=== PATIENT | female | born 1955 | race Caucasian/White ===

== ENCOUNTER 2017-09-20 14:19 | Emergency (ER) | payer BC ==
[2017-09-20] MEDS ORDERED: Aspirin 81 MG Tab.Chew PO ONE (14:27)
[2017-09-20] MEDS ORDERED: Sodium Chloride 0.9% 10 ML Syringe FLUSH PRN (14:27)
[2017-09-20] MEDS ORDERED: Tenecteplase 50 MG Kit IV ONE (14:28)
[2017-09-20] MEDS ORDERED: Heparin Sodium 5,000 Units/ML Vial IVPUSH ONE (14:28)
[2017-09-20] MEDS ORDERED: Tenecteplase 50 MG Kit ONE (14:29)
[2017-09-20] MEDS ORDERED: Heparin Sodium/D5W 25,000 UNITS/500 ML BAG IV SCH (14:30)
--- NOTE | 2017-09-20 14:54 | EDM.PDOC ---
ED HPI GENERAL MEDICAL PROBLEM - General Chief Complaint: Chest Pain Stated Complaint: HEART ISSUE Time Seen by Provider: 09/20/17 14:27 Source of Information: Reports: Patient History Limitations: Reports: No Limitations - History of Present Illness INITIAL COMMENTS - FREE TEXT/NARRATIVE: The patient presents with left sided chest pain. This started this morning at work. She is short of breath. She says it radiates to her back. She has never had chest pain like this before. It is a 3/10 now. She has some nausea. She did not vomit. She is no diaphoretic. She has no history of heart disease but she does have HTN. She has no hypercholesterolemia. She has no diabetes. She does not smoke. Onset: Sudden Duration: Hour(s): Location: Reports: Chest Quality: Reports: Pressure Severity: Moderate Improves with: Reports: None Worsens with: Reports: None Associated Symptoms: Reports: Chest Pain, Nausea/Vomiting, Shortness of Breath. 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: - Past Surgical History GI Surgical History: Reports: Appendectomy Social & Family History - Family History Oncologic: Reports: Breast, Liver - Tobacco Use Smoking Status *Q: Current Every Day Smoker Years of Tobacco use: 50 Packs/Tins Daily: 1 - Caffeine Use Caffeine Use: Reports: Coffee - Alcohol Use Days Per Week of Alcohol Use: 7 Number of Drinks Per Day: 5 Total Drinks Per Week: 35 - Recreational Drug Use Recreational Drug Use: No ED ROS GENERAL - Review of Systems Review Of Systems: See Below Constitutional: Reports: No Symptoms HEENT: Reports: No Symptoms Respiratory: Reports: Shortness of Breath Cardiovascular: Reports: Chest Pain Endocrine: Reports: No Symptoms GI/Abdominal: Reports: Nausea. Denies: Abdominal Pain, Vomiting : Reports: No Symptoms Musculoskeletal: Reports: No Symptoms ED EXAM, GENERAL - Physical Exam Exam: See Below Exam Limited By: No Limitations General Appearance: Alert, No Apparent Distress Ears: Normal External Exam Nose: Normal Inspection Head: Atraumatic, Normocephalic Neck: Normal Inspection Respiratory/Chest: No Respiratory Distress, Lungs Clear, Normal Breath Sounds Cardiovascular: Regular Rate, Rhythm, No Edema, No Murmur GI/Abdominal: Soft, Non-Tender, No Organomegaly, No Mass Extremities: Normal Inspection Neurological: Alert, Oriented, No Motor/Sensory Deficits EKG INTERPRETATION EKG Date: 09/20/17 Time: 14:22 Rhythm: NSR Rate (Beats/Min): 81 [place]: Normal P-Wave: Present QRS: Normal ST-T: Elevated (Inferior leads with reciprocal changes to the anterior leads) Course - Vital Signs Last Recorded V/S: Last Vital Signs Temp 97.1 F 09/20/17 14:24 Pulse 97 09/20/17 14:24 Resp 15 09/20/17 14:24 BP 148/98 H 09/20/17 14:24 Pulse Ox 99 09/20/17 14:24 - Orders/Labs/Meds Orders: Active Orders 24 hr Category Date Time Status Cardiac Monitoring [RC] . DIRECTED Care 09/20/17 14:27 Active EKG Documentation Completion [RC] STAT Care 09/20/17 14:27 Active Oxygen Therapy [RC] PRN Care 09/20/17 14:27 Active Peripheral IV Care [RC] . DIRECTED Care 09/20/17 14:27 Active Chest 1V Frontal [CR] Stat Exams 09/20/17 14:28 Taken CBC W/O DIFF,HEMOGRAM [HEME] MOTH@0700 Lab 09/23/17 07:00 Ordered CBC W/O DIFF,HEMOGRAM [HEME] MOTH@0700 Lab 09/27/17 07:00 Ordered CBC W/O DIFF,HEMOGRAM [HEME] MOTH@0700 Lab 09/30/17 07:00 Ordered CBC W/O DIFF,HEMOGRAM [HEME] MOTH@0700 Lab 10/04/17 07:00 Ordered CBC W/O DIFF,HEMOGRAM [HEME] MOTH@0700 Lab 10/07/17 07:00 Ordered CBC W/O DIFF,HEMOGRAM [HEME] MOTH@0700 Lab 10/11/17 07:00 Ordered COMPREHENSIVE METABOLIC PN,CMP [CHEM] Stat Lab 09/20/17 14:25 Received TROPONIN I [CHEM] Stat Lab 09/20/17 14:25 Received Heparin Sodium/D5W [Heparin 25,000 Units in D5W 500 ML] Med 09/20/17 14:30 Active 25,000 units in 500 ml IV TITRATE Sodium Chloride 0.9% [Saline Flush] Med 09/20/17 14:27 Active 10 ml FLUSH ASDIRECTED PRN Peripheral IV Insertion Adult [OM.PC] Stat Oth 09/20/17 14:27 Ordered Medication Orders Heparin Sodium/Dextrose (Heparin 25,000 Units In D5w 500 Ml) 25,000 units in 500 mls @ 17.69 mls/hr IV TITRATE WOLF; 15 UNITS/KG/HR PRN Reason: Protocol Last Admin: 09/20/17 14:42 Dose: 17.69 mls/hr Sodium Chloride (Saline Flush) 10 ml FLUSH ASDIRECTED PRN PRN Reason: Keep Vein Open Labs: Laboratory Tests 09/20/17 Range/Units 14:25 WBC 12.01 H (3.98-10.04) K/mm3 RBC 4.64 (3.98-5.22) M/mm3 Hgb 15.2 (11.2-15.7) gm/L Hct 45.2 H (34.1-44.9) % MCV 97.4 H (79.4-94.8) fl MCH 32.8 H (25.6-32.2) pg MCHC 33.6 (32.2-35.5) g/dl RDW Std Deviation 43.5 (36.4-46.3) fL Plt Count 308 (182-369) K/mm3 MPV 9.6 (9.4-12.3) fl Neut % (Auto) 59.9 (34.0-71.1) % Lymph % (Auto) 31.6 (19.3-51.7) % [place] % (Auto) 7.3 (4.7-12.5) % Eos % (Auto) 0.6 L (0.7-5.8) Baso % (Auto) 0.2 (0.1-1.2) % Neut # (Auto) 7.19 H (1.56-6.13) K/mm3 Lymph # (Auto) 3.80 H (1.18-3.74) K/mm3 [place] # (Auto) 0.88 H (0.24-0.36) K/mm3 Eos # (Auto) 0.07 (0.04-0.36) K/mm3 Baso # (Auto) 0.02 (0.01-0.08) K/mm3 Meds: Medications Generic Name Dose Route Start Last Admin Trade Name Freq PRN Reason Stop Dose Admin Heparin Sodium/Dextrose 25,000 units in 500 mls @ 17.69 mls/hr 09/20/17 14:30 09/20/17 14:42 Heparin 25,000 Units In D5w 500 Ml IV 17.69 mls/hr TITRATE WOLF Administration Protocol 15 UNITS/KG/HR Sodium Chloride 10 ml 09/20/17 14:27 Saline Flush FLUSH ASDIRECTED PRN Keep Vein Open Discontinued Medications Generic Name Dose Route Start Last Admin Trade Name Freq PRN Reason Stop Dose Admin Aspirin 324 mg 09/20/17 14:27 09/20/17 14:38 Aspirin PO 09/20/17 14:28 324 mg ONETIME ONE Administration Heparin Sodium (Porcine) 3,480 units 09/20/17 14:28 09/20/17 14:42 Heparin Sodium IVPUSH 09/20/17 14:29 3,480 units ONETIME ONE Administration Tenecteplase Confirm 09/20/17 14:29 Tnkase Administered 09/20/17 14:30 Dose 50 mg .ROUTE .STK-MED ONE Tenecteplase 30 mg 09/20/17 14:28 09/20/17 14:46 Tnkase IV 09/20/17 14:29 35 mg ONETIME ONE Administration Protocol - Re-Assessments/Exams Free Text/Narrative Re-Assessment/Exam: 09/20/17 14:53 The patient came in to the ER with chest pain. My nurses did an EKG and there was ST elevation in the inferior leads. I ordered O2 PRN, IV saline lock, aspirin, TnKase 30mg IV, CXR, labs, heparin bolus of 3,480units and a drip at 1, 000units. 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 Departure - Departure Time of Disposition: 15:00 Disposition: DC/Tfer to Acute Hospital 02 Reason for Transfer *Q: Primary PCI Indicated Condition: Serious Clinical Impression: STEMI (ST elevation myocardial infarction) Qualifiers: Involved coronary artery: right coronary artery Qualified Code(s): I21.11 - ST elevation (STEMI) myocardial infarction involving right coronary artery Referrals: PCP,Unknown [Primary Care Provider] - - My Orders Last 24 Hours: My Active Orders 09/20/17 14:25 COMPREHENSIVE METABOLIC PN,CMP [CHEM] Stat TROPONIN I [CHEM] Stat 09/20/17 14:27 Cardiac Monitoring [RC] . DIRECTED EKG Documentation Completion [RC] STAT Oxygen Therapy [RC] PRN Peripheral IV Care [RC] . DIRECTED Sodium Chloride 0.9% [Saline Flush] 10 ml FLUSH ASDIRECTED PRN Peripheral IV Insertion Adult [OM.PC] Stat 09/20/17 14:28 Chest 1V Frontal [CR] Stat 09/20/17 14:30 Heparin Sodium/D5W [Heparin 25,000 Units in D5W 500 ML] 25,000 units in 500 ml IV TITRATE 09/23/17 07:00 CBC W/O DIFF,HEMOGRAM [HEME] MOTH@0700 09/27/17 07:00 CBC W/O DIFF,HEMOGRAM [HEME] MOTH@0700 09/30/17 07:00 CBC W/O DIFF,HEMOGRAM [HEME] MOTH@0700 10/04/17 07:00 CBC W/O DIFF,HEMOGRAM [HEME] MOTH@0700 10/07/17 07:00 CBC W/O DIFF,HEMOGRAM [HEME] MOTH@0700 10/11/17 07:00 CBC W/O DIFF,HEMOGRAM [HEME] MOTH@0700 - Assessment/Plan Last 24 Hours: My Active Orders 09/20/17 14:25 COMPREHENSIVE METABOLIC PN,CMP [CHEM] Stat TROPONIN I [CHEM] Stat 09/20/17 14:27 Cardiac Monitoring [RC] . DIRECTED EKG Documentation Completion [RC] STAT Oxygen Therapy [RC] PRN Peripheral IV Care [RC] . DIRECTED Sodium Chloride 0.9% [Saline Flush] 10 ml FLUSH ASDIRECTED PRN Peripheral IV Insertion Adult [OM.PC] Stat 09/20/17 14:28 Chest 1V Frontal [CR] Stat 09/20/17 14:30 Heparin Sodium/D5W [Heparin 25,000 Units in D5W 500 ML] 25,000 units in 500 ml IV TITRATE 09/23/17 07:00 CBC W/O DIFF,HEMOGRAM [HEME] MOTH@69909/27/17 07:00 CBC W/O DIFF,HEMOGRAM [HEME] MOTH@69909/30/17 07:00 CBC W/O DIFF,HEMOGRAM [HEME] MOTH@69910/04/17 07:00 CBC W/O DIFF,HEMOGRAM [HEME] MOTH@69910/07/17 07:00 CBC W/O DIFF,HEMOGRAM [HEME] MOTH@00 10/11/17 07:00 CBC W/O DIFF,HEMOGRAM [HEME] MOTH@07
--- NOTE | 2017-09-20 14:56 | CR ---
Chest: Frontal view of the chest was obtained utilizing portable technique. Comparison: Prior chest x-ray of 08/16/12 is available. Heart size and mediastinum are within normal limits for portable technique. Lungs are clear. Minimal scoliosis is noted within the spine. Impression: 1. Nothing acute is seen on portable chest x-ray. Diagnostic code #2
[2017-09-20 18:22] VITALS: BP 133/86
== END 2017-09-20 15:26 ==
LOC: JD.ED 14:19
DX: I21.11 ST elevation (STEMI) myocardial infarction involving right coronary artery (principal); I10 Essential (primary) hypertension; F17.210 Nicotine dependence, cigarettes, uncomplicated; Z79.899 Other long term (current) drug therapy
CPT/HCPCS: 36415; 71045; 80053; 84484; 85025; 93005; 96365; 96375; 99285; A9270; J1644; J3101; 93010

== ENCOUNTER 2017-11-14 12:11 | Emergency (ER) | payer BC ==
[2017-11-14 12:23] VITALS: BP 151/78
[2017-11-14] MEDS ORDERED: Famotidine 20 MG/2 ML SDV IVPUSH ONE (12:40)
[2017-11-14] MEDS ORDERED: Sodium Chloride 0.9% 10 ML Syringe FLUSH PRN (12:40)
--- NOTE | 2017-11-14 14:56 | EDM.PDOC ---
ED HPI GENERAL MEDICAL PROBLEM - General Chief Complaint: Chest Pain Stated Complaint: CHEST PAIN Time Seen by Provider: 11/14/17 12:29 Source of Information: Reports: Patient, RN Notes Reviewed - History of Present Illness INITIAL COMMENTS - FREE TEXT/NARRATIVE: 62 year old female with intermitent chest discomfort ever since having R coronary stent placed about 2 months ago. Mild ache and burning discomfort upper mid abd and lower ant chest, does not radiate to back, L shoulder or arm. No cough, fever or chills. No nausea, vomiting or diaphoresis. Was feeling more achy earlier today, better now. She had a stent placed about 2 months ago, "complete blockage" of R coronary. She knows she is anxious, felt she had better have it checked out. 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) Other Treatments LETTUCE TRIMMER: took rountine baby aspirin at 1030 Right Chest Pain Score (Numeric/FACES): 2 - Related Data Allergies Allergy/AdvReac Type Severity Reaction Status Date / Time No Known Allergies Allergy Verified 09/20/17 14:27 Home Meds: Home Meds Lisinopril [Zestril] 10 mg PO DAILY 12/26/15 [History] Aspirin [Halfprin] 81 mg PO DAILY 11/14/17 [History] Clopidogrel [Plavix] 75 mg PO DAILY 11/14/17 [History] Metoprolol Succinate 12.5 mg PO DAILY 11/14/17 [History] atorvaSTATin [Lipitor] 10 mg PO DAILY 11/14/17 [History] Past Medical History HEENT History: Reports: Impaired Vision Cardiovascular History: Reports: Hypertension, [place], 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: Psychiatric History: Reports: Anxiety, Depression - Past Surgical History GI Surgical History: Reports: Appendectomy Musculoskeletal Surgical History: Reports: Other (See Below) Other Musculoskeletal Surgeries/Procedures:: back surgery-spinal stenosis Social & Family History - Family History Oncologic: Reports: Breast, Liver - Tobacco Use Smoking Status *Q: Current Every Day Smoker Years of Tobacco use: 47 Packs/Tins Daily: 1 - Caffeine Use Caffeine Use: Reports: Coffee, Tea - Alcohol Use Days Per Week of Alcohol Use: 7 Number of Drinks Per Day: 5 Total Drinks Per Week: 35 - Recreational Drug Use Recreational Drug Use: No ED ROS GENERAL - Review of Systems Review Of Systems: See Below Constitutional: Denies: Fever, Chills, Diaphoresis HEENT: Reports: No Symptoms Respiratory: Denies: Shortness of Breath, Wheezing, Pleuritic Chest Pain Cardiovascular: Reports: Chest Pain (lower ant chest without radiation) GI/Abdominal: Reports: Abdominal Pain (upper mid abd, mild) Musculoskeletal: Denies: Neck Pain, Shoulder Pain, Arm Pain, Back Pain Skin: Reports: No Symptoms Neurological: Reports: No Symptoms ED EXAM, GENERAL - Physical Exam Exam: See Below General Appearance: Alert, Anxious (mild) Throat/Mouth: Normal Inspection Head: No: Facial Swelling Neck: Supple, Full Range of Motion Respiratory/Chest: No Respiratory Distress, Lungs Clear, Normal Breath Sounds Cardiovascular: Regular Rate, Rhythm GI/Abdominal: Soft, Non-Tender. No: Guarding Back Exam: No: CVA Tenderness (L), CVA Tenderness (R) Extremities: Normal Inspection. No: Normal Range of Motion, Pedal Edema, Leg Pain, Increased Warmth, Redness Neurological: Alert, Oriented, No Motor/Sensory Deficits EKG INTERPRETATION EKG Date: 11/14/17 [place]: Normal P-Wave: Present QRS: Normal ST-T: Depressed (slight St depression AVF, V3-6) Course - Vital Signs Last Recorded V/S: Last Vital Signs Temp 98.5 F 11/14/17 12:21 Pulse 77 11/14/17 12:21 Resp 16 11/14/17 12:21 BP 151/78 H 11/14/17 12:21 Pulse Ox 100 11/14/17 12:21 - Orders/Labs/Meds Orders: Active Orders 24 hr Category Date Time Status EKG Documentation Completion [RC] ASDIRECTED Care 11/14/17 12:27 Active Peripheral IV Care [RC] . DIRECTED Care 11/14/17 12:40 Active Chest 1V Frontal [CR] Stat Exams 11/14/17 12:39 Taken Peripheral IV Insertion Adult [OM.PC] Stat Oth 11/14/17 12:39 Ordered EKG 12 Lead [EK] Stat Ther 11/14/17 12:27 Ordered Labs: Laboratory Tests 11/14/17 11/14/17 11/14/17 Range/Units 12:30 12:30 12:30 WBC 11.18 H (3.98-10.04) K/mm3 RBC 4.29 (3.98-5.22) M/mm3 Hgb 14.2 (11.2-15.7) gm/L Hct 41.9 (34.1-44.9) % MCV 97.7 H (79.4-94.8) fl MCH 33.1 H (25.6-32.2) pg MCHC 33.9 (32.2-35.5) g/dl RDW Std Deviation 42.8 (36.4-46.3) fL Plt Count 271 (182-369) K/mm3 MPV 9.5 (9.4-12.3) fl Neut % (Auto) 64.1 (34.0-71.1) % Lymph % (Auto) 25.3 (19.3-51.7) % [place] % (Auto) 9.1 (4.7-12.5) % Eos % (Auto) 0.8 (0.7-5.8) Baso % (Auto) 0.3 (0.1-1.2) % Neut # (Auto) 7.17 H (1.56-6.13) K/mm3 Lymph # (Auto) 2.83 (1.18-3.74) K/mm3 [place] # (Auto) 1.02 H (0.24-0.36) K/mm3 Eos # (Auto) 0.09 (0.04-0.36) K/mm3 Baso # (Auto) 0.03 (0.01-0.08) K/mm3 Sodium 137 (136-145) mEq/L Potassium 4.0 (3.5-5.1) mEq/L Chloride 101 (98-107) mEq/L Carbon Dioxide 26 (21-32) mEq/L Anion Gap 14.0 (5-15) BUN 8 (7-18) mg/dL Creatinine 0.6 (0.55-1.02) mg/dL Est Cr Clr Drug Dosing 85.24 mL/min Estimated GFR (MDRD) > 60 (>60) mL/min BUN/Creatinine Ratio 13.3 L (14-18) Glucose 108 (80-115) mg/dL Calcium 9.3 (8.5-10.1) mg/dL Total Bilirubin 0.9 (0.2-1.0) mg/dL AST 20 (15-37) U/L ALT 25 (14-59) U/L Alkaline Phosphatase 97 (46-116) U/L Troponin I < 0.017 (0.00-0.056) ng/mL Total Protein 7.1 (6.4-8.2) g/dl Albumin 3.7 (3.4-5.0) g/dl Globulin 3.4 gm/dL Albumin/Globulin Ratio 1.1 (1-2) Meds: Medications Discontinued Medications Generic Name Dose Route Start Last Admin Trade Name Freq PRN Reason Stop Dose Admin Famotidine 20 mg 11/14/17 12:40 11/14/17 12:47 Pepcid IVPUSH 11/14/17 12:41 20 mg ONETIME ONE Administration Sodium Chloride 10 ml 11/14/17 12:40 11/14/17 12:47 Saline Flush FLUSH 10 ml ASDIRECTED PRN Administration Keep Vein Open - Re-Assessments/Exams Free Text/Narrative Re-Assessment/Exam: 11/14/17 21:11 trop did come back normal, CXR, other labs look good, NSR while here in the ED, no ectopy or other rythm abnormality, 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 Departure - Departure Time of Disposition: 14:56 Disposition: Home, Self-Care 01 Condition: Fair Clinical Impression: Atypical chest pain Instructions: Nonspecific Chest Pain, [id number] Referrals: Gokul Pool MD [Primary Care Provider] - Forms: ED Department Discharge Additional Instructions: continue current medications, See Die Casting Machine Maintainer in about 10 days as planned, Return to ED if symptoms worsening in any way. - My Orders Last 24 Hours: My Active Orders 11/14/17 12:27 EKG Documentation Completion [RC] ASDIRECTED EKG 12 Lead [EK] Stat 11/14/17 12:39 Chest 1V Frontal [CR] Stat Peripheral IV Insertion Adult [OM.PC] Stat 11/14/17 12:40 Peripheral IV Care [RC] . DIRECTED - Assessment/Plan Last 24 Hours: My Active Orders 11/14/17 12:27 EKG Documentation Completion [RC] ASDIRECTED EKG 12 Lead [EK] Stat 11/14/17 12:39 Chest 1V Frontal [CR] Stat Peripheral IV Insertion Adult [OM.PC] Stat 11/14/17 12:40 Peripheral IV Care [RC] . DIRECTED
--- NOTE | 2017-11-15 07:59 | CR ---
Chest: Frontal view of the chest was obtained. Comparison: Prior chest x-ray of 09/20/17. Heart size is normal. Mild tortuosity of the thoracic aorta is seen. Lungs are clear. No acute parenchymal change is seen. Bony structures are unremarkable. Impression: 1. Nothing acute is appreciated on frontal chest x-ray. No significant change is seen from previous study. Diagnostic code #1
== END 2017-11-14 15:16 | disposition home or self-care (01) ==
LOC: JD.ED 12:11
DX: R07.89 Other chest pain (principal); I10 Essential (primary) hypertension; F32.9 Major depressive disorder, single episode, unspecified; F17.210 Nicotine dependence, cigarettes, uncomplicated; Z79.82 Long term (current) use of aspirin; Z79.899 Other long term (current) drug therapy
CPT/HCPCS: 36415; 71045; 80053; 84484; 85025; 93005; 96374; 99285; J7050; 93010; 99283-25

== ENCOUNTER 2019-12-27 23:49 | Emergency (ER) | payer BC, MEDICARE ==
[2019-12-28 00:28] VITALS: BP 160/76; PULSE 93
--- NOTE | 2019-12-28 00:59 | EDM.PDOC ---
ED HPI GENERAL MEDICAL PROBLEM - General Chief Complaint: Chest Pain Stated Complaint: CHEST PAIN Time Seen by Provider: 12/28/19 00:40 Source of Information: Reports: Patient History Limitations: Reports: No Limitations - History of Present Illness INITIAL COMMENTS - FREE TEXT/NARRATIVE: Ms. Horner is a very pleasant 64-year-old woman with a past medical history significant for coronary artery disease, status post an AR in September 2017, status post a single stent to the RCA, as well as anxiety and depression, who now presents to the ED stating that she developed sudden-onset lower central chest pain - she points with one finger to her lower sternum - around 22:00 tonight, while in bed. It does not radiate. She states that the pain woke her from sleep. She describes the sensation as a burning indigestion. She states that initially it was more of a discomfort, but it has become a pain. The pain comes and goes, lasting 10 to 15 seconds, then recurring a few seconds later. She has associated nausea and feels clammy, but denies associated dyspnea or sense of impending doom. She states that her symptoms are the same as when she suffered an AR in September 2017. The patient states that she chewed 3 baby aspirin around 22:30 to 23:00. The patient also notes that she had the sensation of heaviness felt across the back of her shoulders and neck and down both arms Wednesday morning, 12/26/2019, while at work. Otherwise, the patient denies recent fever, chills, sore throat , ear pain, nasal or sinus congestion, cough, dyspnea, chest pain, palpitations , nausea, vomiting, constipation, diarrhea, abdominal pain, urinary symptoms, recent weight gain or weight loss, recent bloody bowel movements or black bowel movements, recent joint aches, headaches, or rashes. Here in the ED, the patient's initial BP is found to be elevated at 160/76, otherwise, she is hemodynamically stable, afebrile, saturating 97% on room air. The patient states that she did not undergo a cardiac stress test following her AR in 2017. The patient's PCP is Dr. Gokul Pool. Her General Assistant is Dr. Kelly Capone. Chest Pain Score (Numeric/FACES): 2 - Related Data Allergies Allergy/AdvReac Type Severity Reaction Status Date / Time No Known Allergies Allergy Verified 09/20/17 14:27 Home Meds: Home Meds lisinopriL [Zestril] 10 mg PO DAILY 12/26/15 [History] Aspirin [Halfprin] 81 mg PO DAILY 11/14/17 [History] Clopidogrel [Plavix] 75 mg PO DAILY 11/14/17 [History] Metoprolol Succinate 12.5 mg PO DAILY 11/14/17 [History] atorvaSTATin [Lipitor] 10 mg PO DAILY 11/14/17 [History] Past Medical History HEENT History: Reports: Impaired Vision Cardiovascular History: Reports: CAD, Hypertension, AR (Sep 2017) Musculoskeletal History: Reports: Other (See Below) (Spinal stenosis s/p lumbar laminectomy) Psychiatric History: Reports: Anxiety, Depression - Past Surgical History Cardiovascular Surgical History: Reports: Coronary Artery Stent (x 1, RCA, Sep 2017) GI Surgical History: Reports: Appendectomy Neurological Surgical History: Reports: Lumbar Spine (laminectomy) Social & Family History - Family History Oncologic: Reports: Breast, Liver - Tobacco Use Smoking Status *Q: Current Every Day Smoker Years of Tobacco use: 51 Packs/Tins Daily: 1 - Caffeine Use Caffeine Use: Reports: Coffee, Tea - Alcohol Use Alcohol Use History: Yes Alcohol Use Frequency: Socially - Recreational Drug Use Recreational Drug Use: No - Living Situation & Occupation Living situation: Reports: , with Family (2 grandchildren) 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 ED EXAM, GENERAL - Physical Exam Exam: See Below Exam Limited By: No Limitations General Appearance: Alert, WD/WN, No Apparent Distress Eye Exam: Bilateral Eye: EOMI, Normal Inspection Ears: Normal External Exam, Hearing Grossly Normal Nose: Normal Inspection Throat/Mouth: Normal Inspection, Normal Lips, Normal Voice, No Airway Compromise Head: Atraumatic, Normocephalic Neck: Normal Inspection, Full Range of Motion Respiratory/Chest: No Respiratory Distress, Lungs Clear, Normal Breath Sounds, No Accessory Muscle Use, Chest Non-Tender (including the lower sternum) Cardiovascular: Normal Peripheral Pulses, Regular Rate, Rhythm, No Edema, No Gallop, No JVD, No Murmur, No Rub Peripheral Pulses: 4+: Radial (L), Radial (R) GI/Abdominal: Normal Bowel Sounds, Soft, Non-Tender (including the epigastrium) , No Organomegaly, No Distention, No Abnormal Bruit, No Mass (Female) Exam: Deferred Rectal (Female) Exam: Deferred Back Exam: Normal Inspection, Full Range of Motion, NT Extremities: Normal Inspection, Normal Range of Motion, No Pedal Edema, Normal Capillary Refill Neurological: Alert, Oriented, Normal Cognition, No Motor/Sensory Deficits Psychiatric: Normal Affect Skin Exam: Warm, Dry, Intact, Normal Color, No Rash EKG INTERPRETATION EKG Date: 12/28/19 Time: 00:03 Rhythm: NSR Rate (Beats/Min): 88 [place]: Normal P-Wave: Present QRS: Normal (Early transition) ST-T: Depressed (ST depression in the inferolateral leads, but no T wave inversions.) QT: Normal Comparison: No Change (11/14/2017) Course - Vital Signs Last Recorded V/S: Last Vital Signs Temp 37.0 C 12/28/19 00:03 Pulse 93 12/28/19 00:03 Resp 16 12/28/19 00:03 BP 160/76 H 12/28/19 00:03 Pulse Ox 97 12/28/19 00:03 - Orders/Labs/Meds Orders: Active Orders 24 hr Category Date Time Status EKG Documentation Completion [RC] ASDIRECTED Care 12/28/19 00:08 Active Chest 2V [CR] Stat Exams 12/28/19 01:12 Taken EKG 12 Lead [EK] Stat Ther 12/28/19 00:08 Ordered Labs: Laboratory Tests 12/28/19 12/28/19 12/28/19 Range/Units 00:18 00:18 00:18 WBC 9.09 (3.98-10.04) K/mm3 RBC 4.23 (3.98-5.22) M/mm3 Hgb 13.9 (11.2-15.7) gm/dl Hct 41.4 (34.1-44.9) % MCV 97.9 H (79.4-94.8) fl MCH 32.9 H (25.6-32.2) pg MCHC 33.6 (32.2-35.5) g/dl RDW Std Deviation 45.4 (36.4-46.3) fL Plt Count 304 (182-369) K/mm3 MPV 9.3 L (9.4-12.3) fl Neut % (Auto) 44.9 (34.0-71.1) % Lymph % (Auto) 40.5 (19.3-51.7) % [place] % (Auto) 8.1 (4.7-12.5) % Eos % (Auto) 5.6 (0.7-5.8) Baso % (Auto) 0.6 (0.1-1.2) % Neut # (Auto) 4.08 (1.56-6.13) K/mm3 Lymph # (Auto) 3.68 (1.18-3.74) K/mm3 [place] # (Auto) 0.74 H (0.24-0.36) K/mm3 Eos # (Auto) 0.51 H (0.04-0.36) K/mm3 Baso # (Auto) 0.05 (0.01-0.08) K/mm3 PT (9.7-12.0) SECONDS INR APTT (22-31) SECONDS D-Dimer, Quantitative (0.19-0.50) mg/L Sodium 137 (136-145) mEq/L Potassium 3.7 (3.5-5.1) mEq/L Chloride 102 (98-107) mEq/L Carbon Dioxide 25 (21-32) mEq/L Anion Gap 13.7 (5-15) BUN 12 (7-18) mg/dL Creatinine 0.5 L (0.55-1.02) mg/dL Est Cr Clr Drug Dosing 95.57 mL/min Estimated GFR (MDRD) > 60 (>60) mL/min BUN/Creatinine Ratio 24.0 H (14-18) Glucose 148 H (80-115) mg/dL Calcium 9.3 (8.5-10.1) mg/dL Magnesium (1.8-2.4) mg/dl Total Bilirubin 0.3 (0.2-1.0) mg/dL AST 18 (15-37) U/L ALT 28 (14-59) U/L Alkaline Phosphatase 108 (46-116) U/L Troponin I < 0.017 (0.00-0.056) ng/mL NT-Pro-B Natriuret Pep 57 (0-125) pg/mL Total Protein 6.9 (6.4-8.2) g/dl Albumin 3.6 (3.4-5.0) g/dl Globulin 3.3 gm/dL Albumin/Globulin Ratio 1.1 (1-2) 12/28/19 12/28/19 12/28/19 Range/Units 00:18 00:28 01:55 WBC (3.98-10.04) K/mm3 RBC (3.98-5.22) M/mm3 Hgb (11.2-15.7) gm/dl Hct (34.1-44.9) % MCV (79.4-94.8) fl MCH (25.6-32.2) pg MCHC (32.2-35.5) g/dl RDW Std Deviation (36.4-46.3) fL Plt Count (182-369) K/mm3 MPV (9.4-12.3) fl Neut % (Auto) (34.0-71.1) % Lymph % (Auto) (19.3-51.7) % [place] % (Auto) (4.7-12.5) % Eos % (Auto) (0.7-5.8) Baso % (Auto) (0.1-1.2) % Neut # (Auto) (1.56-6.13) K/mm3 Lymph # (Auto) (1.18-3.74) K/mm3 [place] # (Auto) (0.24-0.36) K/mm3 Eos # (Auto) (0.04-0.36) K/mm3 Baso # (Auto) (0.01-0.08) K/mm3 PT 9.7 (9.7-12.0) SECONDS INR 0.93 APTT 25 (22-31) SECONDS D-Dimer, Quantitative 0.28 (0.19-0.50) mg/L Sodium (136-145) mEq/L Potassium (3.5-5.1) mEq/L Chloride (98-107) mEq/L Carbon Dioxide (21-32) mEq/L Anion Gap (5-15) BUN (7-18) mg/dL Creatinine (0.55-1.02) mg/dL Est Cr Clr Drug Dosing mL/min Estimated GFR (MDRD) (>60) mL/min BUN/Creatinine Ratio (14-18) Glucose (80-115) mg/dL Calcium (8.5-10.1) mg/dL Magnesium 2.0 (1.8-2.4) mg/dl Total Bilirubin (0.2-1.0) mg/dL AST (15-37) U/L ALT (14-59) U/L Alkaline Phosphatase (46-116) U/L Troponin I < 0.017 (0.00-0.056) ng/mL NT-Pro-B Natriuret Pep (0-125) pg/mL Total Protein (6.4-8.2) g/dl Albumin (3.4-5.0) g/dl Globulin gm/dL Albumin/Globulin Ratio (1-2) Meds: Medications Discontinued Medications Generic Name Dose Route Start Last Admin Trade Name Freq PRN Reason Stop Dose Admin Al Hydroxide/Mg Hydroxide 30 0 ml 12/28/19 02:34 12/28/19 02:44 ml/ Lidocaine HCl 15 ml PO 12/28/19 02:35 45 ml ONETIME STA Administration Famotidine 40 mg 12/28/19 02:34 12/28/19 02:44 Pepcid PO 12/28/19 02:35 40 mg ONETIME STA Administration - Re-Assessments/Exams Free Text/Narrative Re-Assessment/Exam: 12/28/19 01:00 The patient's CBC is unremarkable. Her CMP is remarkable for a blood glucose elevated at 148, with the remainder of her CMP being unremarkable. Her magnesium level is within normal limits at 2.0. Her troponin is undetectably low. Her BNP is within normal limits at 57. Her D-dimer is within normal limits at 0.28. Her coags are within normal limits. The patient has not yet gone for her chest x-ray. The patient's ECG demonstrates ST depressions in the inferolateral leads, but without T-wave inversions, and these same changes were seen on her previous ECG of 11/14/2017. Nevertheless, the patient states that her current symptoms are the same as when she suffered an AR in September 2017, therefore I will repeat a troponin 4 hours after the onset of her symptoms, at 02:00. 12/28/19 01:35 Two-view chest radiograph appears to be grossly normal. The cardiac silhouette is within normal limits. No pulmonary vascular congestion. No pleural effusions. No focal infiltrate. No pneumothorax. Formal read per the Radiologist pending. 12/28/19 02:32 The patient's repeat troponin is still undetectably low. 12/28/19 02:38 Test results discussed with the patient. The patient states that her symptoms have significantly improved, although not completely resolved. I have ordered a GI cocktail and oral famotidine, and I will have the patient continue to take [id number] famotidine on a regular basis. I would like her to follow-up with her General Assistant to arrange for an outpatient cardiac stress test. 12/28/19 02:53 The patient states that she had some improvement - not complete relief - following the GI cocktail. This supports the diagnosis of GERD. Departure - Departure Time of Disposition: 02:39 Disposition: Home, Self-Care 01 Condition: Good Clinical Impression: GERD (gastroesophageal reflux disease) Referrals: Gokul Pool MD [Primary Care Provider] - Kelly Capone MD [Physician] - Forms: ED Department Discharge Additional Instructions: You were seen in the emergency room after being awoken with lower chest burning pain. Work-up in the ER included blood work, a chest x-ray, and an ECG. Your entire work-up was unremarkable. You have not suffered a heart attack. You do not have a blood clot in your lungs. You do not have pneumonia. You do not have a collapsed lung. Based on your history and physical exam, the cause of your pain is most likely due to GERD (acid reflux). You have been started on the antacid famotidine (Pepcid). Famotidine is available [id number], and generic is just as good as the brand name. We recommend that you take 1 tablet of famotidine either once or twice a day. We recommend that you follow-up with your General Assistant, Dr. Kelly Capone, to arrange for an outpatient cardiac stress test. As discussed, we also recommend that you consider quitting smoking. If any other problems, please do not hesitate to return to the ER. Sepsis Event Note - Evaluation Sepsis Screening Result: No Definite Risk - Focused Exam Vital Signs: Vital Signs Temp Pulse Resp BP Pulse Ox 12/28/19 00:03 37.0 C 93 16 160/76 H 97 Date Exam was Performed: 12/28/19 Time Exam was Performed: 02:53 - My Orders Last 24 Hours: My Active Orders 12/28/19 00:08 EKG Documentation Completion [RC] ASDIRECTED EKG 12 Lead [EK] Stat 12/28/19 01:12 Chest 2V [CR] Stat - Assessment/Plan Last 24 Hours: My Active Orders 12/28/19 00:08 EKG Documentation Completion [RC] ASDIRECTED EKG 12 Lead [EK] Stat 12/28/19 01:12 Chest 2V [CR] Stat
[2019-12-28] MEDS ORDERED: Famotidine 20 MG Tab PO STA (02:34)
[2019-12-28] MEDS ORDERED: Alum Hydrox/Mag Hydrox/Simeth 30 ML, Lidocaine 2% 15 ML PO STA ×2 (02:34)
--- NOTE | 2019-12-28 12:01 | CR ---
Chest: 2 views of the chest were obtained. Comparison: Prior chest x-ray of 11/14/17. Heart size and mediastinum are normal. Lungs are hyperinflated on the lateral view compatible with emphysematous change. Lungs show no acute parenchymal change. Bony structures appear within normal limits for the patient's age. Impression: 1. Probable emphysematous change. 2. Nothing acute is appreciated on 2 view chest x-ray. Diagnostic code #2 This report was dictated in MDT
== END 2019-12-28 03:10 | disposition home or self-care (01) ==
LOC: JD.ED 23:49
DX: K21.9 Gastro-esophageal reflux disease without esophagitis (principal); I25.10 Atherosclerotic heart disease of native coronary artery without angina pectoris; I10 Essential (primary) hypertension; I25.2 Old myocardial infarction; F17.210 Nicotine dependence, cigarettes, uncomplicated; Z79.82 Long term (current) use of aspirin; Z79.02 Long term (current) use of antithrombotics/antiplatelets; Z79.899 Other long term (current) drug therapy
CPT/HCPCS: 36415; 71046; 80053; 83735; 83880; 84484; 85025; 85379; 85610; 85730; 93005; 99285; A9270; 93010; 99283

== ENCOUNTER 2024-08-15 11:21 | Emergency (ER) | payer BC, MEDICARE ==
[2024-08-15] MEDS: Sodium Chloride 0.9% 1,000 ML IV ONE (12:05)
[2024-08-15 12:15] LABS: BASOPHILS PERCENT AUTO 0.4 % (0.0-1.0); EOSINOPHILS PERCENT AUTO 0.4 % (0.0-6.0); HEMATOCRIT 42.9 % (37.0-47.0); IMMATURE GRAN ABSOLUTE AUTO 0.04 K/mm3 (0.00-0.05); IMMATURE GRAN PERCENT AUTO 0.5 % (0.0-0.4); LYMPHOCYTES ABSOLUTE AUTO 1.4 K/mm3 (1.0-4.8); LYMPHOCYTES PERCENT AUTO 16.1 % (24.0-44.0); MEAN CORPUSCULAR HEMOGLOBIN 33.8 pg (28.0-32.0); MEAN CORPUSCULAR VOLUME 96.6 fl (83.0-99.0); MEAN PLATELET VOLUME 9.1 fl (9.4-12.3); MONOCYTES ABSOLUTE AUTO 0.7 K/mm3 (0.0-0.8); NEUTROPHILS ABSOLUTE AUTO 6.4 K/mm3 (1.8-7.7); NEUTROPHILS PERCENT AUTO 74.6 % (41.0-71.0); PLATELET COUNT,PLT 282 K/mm3 (150-400); RED BLOOD CELL COUNT 4.44 M/mm3 (4.10-5.30); WHITE BLOOD CELL COUNT,WBC 8.51 K/mm3 (3.9-11.3)
[2024-08-15 12:44] LABS: A/G RATIO 0.9 (1-2); ALBUMIN 3.2 g/dl (3.4-5.0); ANION GAP 15.1 (5-15); BILIRUBIN TOTAL 0.7 mg/dL (0.2-1.0); CALCIUM 9.2 mg/dL (8.5-10.1); CREATININE 0.5 mg/dL (0.55-1.02); EST CRCL DRUG DOSING (CG) 92.86 mL/min; MAGNESIUM 1.7 mg/dL (1.8-2.4); POTASSIUM,K 3.1 mEq/L (3.5-5.1); PROTEIN TOTAL,TP 6.9 g/dl (6.4-8.2)
[2024-08-15 12:52] LABS: APPEARANCE,URINE CLEAR (Clear); BILIRUBIN,URINE NEGATIVE (Negative); COLOR,URINE YELLOW (Yellow); GLUCOSE,URINE NEGATIVE (Negative); KETONES,URINE 1+ (Negative); LEUKOCYTE ESTERASE,URINE NEGATIVE (Negative); NITRITE,URINE NEGATIVE (Negative); OCCULT BLOOD,URINE NEGATIVE (Negative); PH,URINE 6.5 (5.0-8.0); PROTEIN,URINE NEGATIVE (Negative); UROBILINOGEN,URINE 0.2 (0.2-1.0)
[2024-08-15] MEDS: Metoclopramide 10 MG/2 ML SDV IVPUSH ONE (14:20)
[2024-08-15] MEDS: Potassium Chloride 20 MEQ Tab.ER PO ONE (14:23)
[2024-08-15] MEDS: Magnesium Oxide 400 MG Tab PO ONE (14:24)
[2024-08-15 16:32] VITALS: BP 140/68; PULSE 82
== END 2024-08-15 15:55 | disposition home or self-care (01) ==
LOC: JD.ED 11:21
DX: R11.2 Nausea with vomiting, unspecified (principal); R19.7 Diarrhea, unspecified; I10 Essential (primary) hypertension; I25.2 Old myocardial infarction; I25.10 Atherosclerotic heart disease of native coronary artery without angina pectoris; Z95.5 Presence of coronary angioplasty implant and graft; Z90.49 Acquired absence of other specified parts of digestive tract; Z79.82 Long term (current) use of aspirin; Z79.899 Other long term (current) drug therapy
CPT/HCPCS: 36415; 80053; 81003; 83735; 83880; 85025; 96361; 96374; 99284; A9270; J2765; J7030